=== PATIENT | female | born 1990 | race Caucasian/White ===

== ENCOUNTER → 2016-08-14 | Outpatient (CLI) | payer BC ==
--- NOTE | 2016-08-14 14:58 | REP ---
FOCUSED ULTRASOUND LEFT BREAST: HISTORY: Left breast lump nodule, 2 o'clock. SONOGRAPHIC FINDINGS: Focused left breast sonography is performed from 1-o'clock to 3-o'clock position through the area where the patient palpates a lump. Heterogeneous fibroglandular background echotexture is seen. No mass is observed. No cyst is seen. No suspicious acoustic shadowing or architectural distortion noted. IMPRESSION: BI-RADS category 1, negative focused left breast sonography. This negative report should not dissuade one from biopsy of a palpable lump depending on its clinical characteristics. Clinical followup is advised. Signed by Andreas Mcintosh MD 08/14/2016 04:43 P
== END ==
LOC: M RAD 12:52
DX: N63 Unspecified lump in breast (principal)